=== PATIENT | female | born 1935 ===

== ENCOUNTER 2018-12-18 10:30 | Observation (INO) ==
[2018-12-18 12:33] LABS: Basophils % 0.4 % (0.0-0.8); Eosinophils % 0.4 % (0.00-10.9); Hematocrit 37.1 VOL% (35.7-47.0); Hemoglobin 11.1 GM/DL (12.0-16.0); Immature Granulocytes % 0.4 %; Immature Granulocytes Absolute 0.04 #; Lymphocytes # 1.8 10*3/uL (1.4-4.0); Lymphocytes % 18.1 % (21.3-54.2); Mean Corpuscular HGB Conc 29.9 GM/DL (32-36); Mean Corpuscular Volume 85.3 FL (87-102); Mean Platelet Volume 12.1 FL (9.6-12.0); Monocytes % 4.3 % (1.7-12.7); Neutrophils % 76.4 % (38.7-73.9); Platelet Count 134 T/CUMM (130-400); Red Blood Count 4.35 MC/CUMM (3.8-5.5); Red Cell Distribution Width 15.1 % (9.3-17.3); White Blood Count 10.1 T/CUMM (4-12)
[2018-12-18 12:54] LABS: Albumin 3.4 G/DL (3.4-5.0); Bilirubin,Total 0.4 MG/DL (0.2-1.0); Calcium 9.9 MG/DL (8.5-10.1); Osmolality,Calculated 287.1 MOS/KG (273-304); Total Protein 7.9 G/DL (6.4-8.3)
[2018-12-18] MEDS ORDERED: ACETAMINOPHEN 325 MG TABLET PO PRN ×2 (15:38→17:05)
[2018-12-18] MEDS ORDERED: ONDANSETRON 4 MG/2 ML VIAL IV PRN ×2 (15:38)
[2018-12-18] MEDS ORDERED: PROMETHAZINE 25 MG/1 ML VIAL IM PRN (15:38)
[2018-12-18] MEDS ORDERED: DEXTROSE 5% NACL 0.45% 1,000 ML IV SCH (16:00)
[2018-12-18] MEDS ORDERED: PROMETHAZINE 25 MG TABLET PO PRN (17:05)
[2018-12-18] MEDS ORDERED: MAGNESIUM HYDROXIDE SUSP 30 ML UDCUP PO PRN (17:05)
[2018-12-18] MEDS ORDERED: LORATADINE 10 MG TABLET PO PRN (17:05)
[2018-12-18] MEDS ORDERED: NYSTATIN POWDER 15 GM BOTTLE TOP PRN (17:05)
[2018-12-18] MEDS: DEXTROSE 5% NACL 0.9% 1,000 ML IV SCH (17:53)
[2018-12-18] MEDS: DONEPEZIL 10 MG TABLET PO SCH (23:05)
[2018-12-19 06:31] LABS: Basophils # 0.1 10*3/uL (0.0-0.2); Basophils % 0.5 % (0.0-0.8); Eosinophils # 0.1 10*3/uL (0.0-0.87); Eosinophils % 0.9 % (0.00-10.9); Hematocrit 32.9 VOL% (35.7-47.0); Hemoglobin 9.9 GM/DL (12.0-16.0); Immature Granulocytes % 0.5 %; Immature Granulocytes Absolute 0.05 #; Lymphocytes # 2.8 10*3/uL (1.4-4.0); Lymphocytes % 29.9 % (21.3-54.2); Mean Corpuscular HGB Conc 30.1 GM/DL (32-36); Mean Platelet Volume 12.3 FL (9.6-12.0); Monocytes % 6.8 % (1.7-12.7); Neutrophils % 61.4 % (38.7-73.9); Platelet Count 122 T/CUMM (130-400); Red Blood Count 3.87 MC/CUMM (3.8-5.5); Red Cell Distribution Width 15.2 % (9.3-17.3); White Blood Count 9.3 T/CUMM (4-12)
[2018-12-19] MEDS: DEXTROSE 5% NACL 0.9% 1,000 ML IV SCH (06:36)
[2018-12-19 06:47] LABS: Risk Ratio 2.02; VLDL CHOLESTEROL 9.8 MG/DL
[2018-12-19 06:55] LABS: Amorphous Crystals,Urine Occasional /HPF (Few); Apearance,Urine CLOUDY (Clear); Bilirubin,Urine Negative (Negative); Blood, Urine Negative (Negative); Glucose,Urine (UA) Negative (Negative); Ketones,Urine 5 mg/dL (Negative); Mucus,Urine Few /LPF (Occasional); Nitrite,Urine Negative (Negative); Protein,Urine Negative; RBC,Urine 1 /HPF (0-4); Squamous Epithelial Cell,Urine Moderate /HPF (0-10); Urine Color Yellow (Yellow); Urine Urobilinogen < 2.0 EU/DL (0.2-1.0); WBC,Urine 1 /HPF (0-6)
[2018-12-19 06:56] LABS: Albumin 2.9 G/DL (3.4-5.0); Bilirubin,Total 0.6 MG/DL (0.2-1.0); Osmolality,Calculated 289.7 MOS/KG (273-304); Thyroid Stimulating Hormone 0.414 uIU/ml (0.358-3.74); Total Protein 6.7 G/DL (6.4-8.3)
[2018-12-19 06:58] LABS: Barbiturates Screen,Urine Negative (Negative); Benzodiazepines Screen,Urine Negative (Negative); Cannabinoid Screen,Urine Negative (Negative); Opiate Screen,Urine Negative (Negative); Phencyclidine Screen,Urine Negative (Negative)
[2018-12-19] MEDS: ATORVASTATIN 40 MG TABLET PO SCH (08:35)
[2018-12-19] MEDS: DOXAZOSIN 1 MG TABLET PO SCH (08:35)
[2018-12-19] MEDS: amLODIPine 5 MG TABLET PO SCH (08:35)
[2018-12-19] MEDS: PANTOPRAZOLE 40 MG TABLET PO SCH (08:35)
[2018-12-19] MEDS: POTASSIUM CHLORIDE 10 MEQ TABLET PO SCH (08:35)
[2018-12-19] MEDS: IRON (CARBONYL)/VIT C/B12/FA TABLET PO SCH (08:35)
[2018-12-19] MEDS ORDERED: PANTOPRAZOLE 40 MG TABLET PO SCH (09:00)
[2018-12-19] MEDS ORDERED: RIVAROXABAN 20 MG TABLET PO SCH (17:00)
[2018-12-19] MEDS: DONEPEZIL 10 MG TABLET PO SCH (21:18)
[2018-12-19] MEDS: levETIRAcetam 500 MG TABLET PO SCH (21:18)
[2018-12-20] MEDS: DEXTROSE 5% NACL 0.9% 1,000 ML IV SCH ×3 (01:34→01:35)
[2018-12-20 06:43] LABS: Basophils # 0.1 10*3/uL (0.0-0.2); Basophils % 0.6 % (0.0-0.8); Eosinophils # 0.2 10*3/uL (0.0-0.87); Eosinophils % 2.4 % (0.00-10.9); Hematocrit 33.4 VOL% (35.7-47.0); Hemoglobin 9.9 GM/DL (12.0-16.0); Immature Granulocytes % 0.4 %; Immature Granulocytes Absolute 0.03 #; Lymphocytes # 3.6 10*3/uL (1.4-4.0); Lymphocytes % 42.7 % (21.3-54.2); Mean Corpuscular HGB Conc 29.6 GM/DL (32-36); Mean Corpuscular Volume 85.9 FL (87-102); Mean Platelet Volume 12.2 FL (9.6-12.0); Monocytes % 6.9 % (1.7-12.7); Platelet Count 127 T/CUMM (130-400); Red Blood Count 3.89 MC/CUMM (3.8-5.5); Red Cell Distribution Width 15.5 % (9.3-17.3); White Blood Count 8.4 T/CUMM (4-12)
[2018-12-20 07:08] LABS: Calcium 8.3 MG/DL (8.5-10.1); Osmolality,Calculated 285.7 MOS/KG (273-304)
[2018-12-20] MEDS: IRON (CARBONYL)/VIT C/B12/FA TABLET PO SCH (08:39)
[2018-12-20] MEDS: levETIRAcetam 500 MG TABLET PO SCH (08:39)
[2018-12-20] MEDS: DOXAZOSIN 1 MG TABLET PO SCH (08:39)
[2018-12-20] MEDS: POTASSIUM CHLORIDE 10 MEQ TABLET PO SCH (08:39)
[2018-12-20] MEDS: PANTOPRAZOLE 40 MG TABLET PO SCH (08:39)
[2018-12-20] MEDS: ATORVASTATIN 40 MG TABLET PO SCH (08:40)
[2018-12-20] MEDS: amLODIPine 5 MG TABLET PO SCH (08:40)
[2018-12-20 09:35] VITALS: BP 163/97
== END 2018-12-20 14:40 ==
LOC: N.EDINP 10:30 → N.ED 10:30 → N.4E 20:52
PROVIDERS: ADMIT Family Medicine; ATTEND Family Medicine